=== PATIENT | female | born 1995 | race Two or more races ===

== ENCOUNTER 2017-09-13 09:05 | Observation (INO) | payer MEDICAID ==
[~2017-09-13 09:05] MED LIST: PREN27TA7 OR
== END 2017-09-13 10:50 | disposition home or self-care (01) | DRG 566 ==
LOC: LDRP 09:05
PROVIDERS: ADMIT Specialist; ATTEND Specialist
DX: O35.8XX0 Maternal care for other (suspected) fetal abnormality and damage, not applicable or unspecified (principal); Z3A.33 33 weeks gestation of pregnancy
CPT/HCPCS: 59025; 81002; G0378

== ENCOUNTER 2017-09-20 10:05 | Observation (INO) | payer MEDICAID ==
[~2017-09-20] VITALS: Ht 154.9 cm; Wt 92.5 kg
== END 2017-09-20 12:45 | disposition home or self-care (01) | DRG 468 ==
LOC: LDRP 10:05
PROVIDERS: ADMIT Specialist; ATTEND Specialist
DX: Q62.0 Congenital hydronephrosis (principal); Z3A.34 34 weeks gestation of pregnancy
CPT/HCPCS: 59025; 76818; 81002; G0378

== ENCOUNTER 2017-09-27 09:51 | Observation (INO) | payer MEDICAID ==
[2017-09-27] MEDS ORDERED: FERR27TA2 PO (11:29)
== END 2017-09-27 10:15 | disposition home or self-care (01) | DRG 566 ==
LOC: LDRP 09:51
PROVIDERS: ADMIT Obstetrics & Gynecology; ATTEND Obstetrics & Gynecology
DX: O35.8XX0 Maternal care for other (suspected) fetal abnormality and damage, not applicable or unspecified (principal); Q62.0 Congenital hydronephrosis; Z3A.35 35 weeks gestation of pregnancy
CPT/HCPCS: 59025; 76818; 81002; G0378

== ENCOUNTER 2017-10-04 10:00 | Observation (INO) | payer MEDICAID ==
[~2017-10-04 10:00] MED LIST changes: +FERR27TA2 PO
== END 2017-10-04 11:30 | disposition home or self-care (01) | DRG 566 ==
LOC: LDRP 10:00
PROVIDERS: ADMIT Obstetrics & Gynecology; ATTEND Obstetrics & Gynecology
DX: O99.89 Other specified diseases and conditions complicating pregnancy, childbirth and the puerperium (principal); N13.30 Unspecified hydronephrosis; Z3A.36 36 weeks gestation of pregnancy
CPT/HCPCS: 59025; 76818; 81002; G0378

== ENCOUNTER 2017-10-11 10:53 | Observation (INO) | payer MEDICAID | END 2017-10-11 12:13 | disposition home or self-care (01) | DRG 566 | LOC: LDRP 10:53 | PROVIDERS: ADMIT Obstetrics & Gynecology; ATTEND Obstetrics & Gynecology | DX: O35.8XX1 Maternal care for other (suspected) fetal abnormality and damage, fetus 1 (principal); Z3A.37 37 weeks gestation of pregnancy | CPT/HCPCS: 59025; 76818; 81002; G0378 ==

== ENCOUNTER 2017-10-18 10:22 | Observation (INO) | payer MEDICAID | END 2017-10-18 11:50 | disposition home or self-care (01) | DRG 566 | LOC: LDRP 10:22 | PROVIDERS: ADMIT Specialist; ATTEND Specialist | DX: O35.8XX0 Maternal care for other (suspected) fetal abnormality and damage, not applicable or unspecified (principal); Z3A.00 Weeks of gestation of pregnancy not specified | CPT/HCPCS: 59025; 76818; 81002; G0378 ==

== ENCOUNTER 2017-10-21 10:20 | Observation (INO) | payer MEDICAID ==
[2017-10-21 11:46] LABS: Basophils # (auto) 0 uL; Basophils % (auto) 0.2 % (0.0-2.0); Eosinophils # (auto) 0.1 uL; Eosinophils % (auto) 0.8 % (0.0-7.0); Hematocrit 33.3 % (36.0-46.0); Hemoglobin 10.9 g/dL (12.2-16.2); Lymphocytes # (auto) 1.3 uL; Lymphocytes % (auto) 16.3 % (10.0-50.0); Mean Corpuscular Hemoglobin 27.6 pg (28.0-32.0); Mean Corpuscular Hgb Conc. 32.9 g/dL (32.0-36.0); Mean Corpuscular Volume 83.9 fL (80.0-100.0); Monocytes # (auto) 0.5 uL; Monocytes % (auto) 6.4 % (0.0-12.0); Neutrophils % (auto) 76.3 % (37.0-80.0); Platelet Count (auto) 170 10^3/uL (140-450); Red Blood Cells 3.96 10^6/uL (4.0-5.20); Red Cell Distribution Width 16.4 % (11.8-14.3); White Blood Cell 7.9 10^3/uL (4.4-10.8)
[2017-10-22 06:06] LABS: RPR Non Reactive (Non Reactive)
== END 2017-10-21 12:20 | disposition home or self-care (01) | DRG 566 ==
LOC: LDRP 10:20
PROVIDERS: ADMIT Obstetrics & Gynecology; ATTEND Obstetrics & Gynecology
DX: O35.8XX0 Maternal care for other (suspected) fetal abnormality and damage, not applicable or unspecified (principal); Q62.0 Congenital hydronephrosis; Z3A.39 39 weeks gestation of pregnancy
CPT/HCPCS: 36415; 59025; 81002; 85025; 86592; G0378

== ENCOUNTER 2017-10-25 04:03 | Inpatient (IN) | payer MEDICAID ==
[2017-10-25] VITALS (15 sets, daily range): BP systolic 101–118; BP diastolic 53–83
[~2017-10-25] VITALS: Ht 154.9 cm; Wt 97.1 kg
[2017-10-25] MEDS: LACTATED RINGER'S 1,000 ML IV SCH ×3 (04:10→20:10)
[2017-10-25 04:55] LABS: Basophils # (auto) 0 uL; Basophils % (auto) 0.2 % (0.0-2.0); Eosinophils # (auto) 0.1 uL; Eosinophils % (auto) 1.4 % (0.0-7.0); Hematocrit 31.9 % (36.0-46.0); Hemoglobin 10.7 g/dL (12.2-16.2); Lymphocytes # (auto) 1.8 uL; Lymphocytes % (auto) 18.6 % (10.0-50.0); Mean Corpuscular Hemoglobin 28.6 pg (28.0-32.0); Mean Corpuscular Hgb Conc. 33.6 g/dL (32.0-36.0); Mean Corpuscular Volume 85.2 fL (80.0-100.0); Monocytes # (auto) 0.7 uL; Monocytes % (auto) 6.7 % (0.0-12.0); Neutrophils # (auto) 7.1 uL; Neutrophils % (auto) 73.1 % (37.0-80.0); Nucleated Red Blood Cells % 0.1 %; Platelet Count (auto) 159 10^3/uL (140-450); Red Blood Cells 3.75 10^6/uL (4.0-5.20); Red Cell Distribution Width 16.6 % (11.8-14.3); White Blood Cell 9.8 10^3/uL (4.4-10.8)
[2017-10-25 04:59] LABS: Urine Bacteria FEW /hpf (None Seen); Urine Blood Negative /uL (Negative); Urine Mucus FEW (None Seen); Urine Specific Gravity 1.028 (1.001-1.035); Urine WBC 1 /hpf (0 - 5)
[2017-10-25 05:09] LABS: INR 0.94 (0.9-1.15); Partial Thromboplastin Time 22.9 sec (23.78-33.04); Prothrombin Time 10.1 sec (9.27-12.13)
[2017-10-25 05:14] LABS: Albumin 2.9 g/dL (3.4-5.0); Bilirubin, Total 0.2 mg/dL (0.2-1.0); Calcium 9.5 mg/dL (8.5-10.1); Potassium 3.7 mmol/L (3.5-5.1); Total Protein 7.2 g/dL (6.4-8.2)
[2017-10-25] MEDS ORDERED: TETRACAINE 1% INJ 2 ML VIAL IJ ONE (08:38)
[2017-10-25] MEDS ORDERED: fentaNYL CITRATE 100 MCG/2 ML VL ONE (08:40)
[2017-10-25] MEDS ORDERED: MIDAZOLAM HCL 1MG/1ML-2 ML VIAL ONE (08:40)
[2017-10-25] MEDS ORDERED: KETOROLAC TROMETH 30 MG/ML 1ML VIAL IV ONE (08:45)
[2017-10-25] MEDS ORDERED: MIDAZOLAM HCL 1MG/1ML-2 ML VIAL IV PRN (08:45)
[2017-10-25] MEDS ORDERED: LABETALOL HCL 5 MG/ML 4ML SYRINGE IV PRN (08:45)
[2017-10-25] MEDS ORDERED: ePHEDrine SULFATE 50 MG/ML AMP IV PRN (08:45)
[2017-10-25] MEDS ORDERED: MORPHINE SULFATE 8mg/ml INJ SDV IV PRN ×2 (08:45→09:45)
[2017-10-25] MEDS ORDERED: HYDROmorphone HCL 2 MG/ML VL IV PRN (08:45)
[2017-10-25] MEDS ORDERED: ONDANSETRON HCL 4 MG/2 ML VIAL IV ONE (08:45)
[2017-10-25] MEDS ORDERED: ceFAZolin 1GM VL ONE (09:13)
[2017-10-25] MEDS ORDERED: OXYTOCIN 10 UNIT/ML 10ML VIAL ONE (09:29)
[2017-10-25] MEDS ORDERED: PHENYLEPHRINE HCL 10 MG/ML VL ONE (09:29)
[2017-10-25] MEDS: LACT. RINGERS/OXYTOCIN 20UNITS 1,000 ML IV SCH ×3 (09:36→22:56)
[2017-10-25] MEDS ORDERED: KETOROLAC TROMETH 30 MG/ML 1ML VIAL IV PRN ×2 (09:45→19:30)
[2017-10-25] MEDS ORDERED: ONDANSETRON HCL 4 MG/2 ML VIAL IV PRN (09:45)
[2017-10-25] MEDS ORDERED: MORPHINE SULFATE 8mg/ml INJ SDV IV ONE (10:00)
[2017-10-25] MEDS ORDERED: HYDROmorphone HCL 2 MG/ML VL ONE (16:51)
[2017-10-25] MEDS: ceFAZolin 1GM/100ML 50 ML IV SCH (17:00)
[2017-10-25] MEDS: HYDROmorphone HCL 2 MG/ML VL IV PRN ×2 (17:00→21:09)
[2017-10-25] MEDS ORDERED: KETOROLAC TROMETH 30 MG/ML 1ML VIAL ONE (19:35)
[2017-10-25] MEDS: KETOROLAC TROMETH 30 MG/ML 1ML VIAL IV PRN (19:49)
[2017-10-25] MEDS ORDERED: TETANUS-DIPTH-ACEL PERTUSSIS 0.5ML SYRG IM ONE (20:00)
[2017-10-25 20:03] LABS: Basophils # (auto) 0 uL; Basophils % (auto) 0.1 % (0.0-2.0); Eosinophils # (auto) 0 uL; Eosinophils % (auto) 0.4 % (0.0-7.0); Hemoglobin 9.8 g/dL (12.2-16.2); Lymphocytes # (auto) 1.6 uL; Lymphocytes % (auto) 15.4 % (10.0-50.0); Mean Corpuscular Hemoglobin 28.5 pg (28.0-32.0); Mean Corpuscular Hgb Conc. 33.6 g/dL (32.0-36.0); Mean Corpuscular Volume 84.8 fL (80.0-100.0); Monocytes # (auto) 0.5 uL; Monocytes % (auto) 5.3 % (0.0-12.0); Neutrophils # (auto) 8.2 uL; Neutrophils % (auto) 78.8 % (37.0-80.0); Nucleated Red Blood Cells % 0.1 %; Platelet Count (auto) 129 10^3/uL (140-450); Red Blood Cells 3.42 10^6/uL (4.0-5.20); Red Cell Distribution Width 16.5 % (11.8-14.3); White Blood Cell 10.4 10^3/uL (4.4-10.8)
[2017-10-26] MEDS: ceFAZolin 1GM/100ML 50 ML IV SCH ×2 (01:18→08:46)
[2017-10-26] MEDS: HYDROmorphone HCL 2 MG/ML VL IV PRN ×2 (01:19→05:41)
[2017-10-26 03:00] VITALS: BP 136/70
[2017-10-26] MEDS: KETOROLAC TROMETH 30 MG/ML 1ML VIAL IV PRN (03:47)
[2017-10-26] MEDS: LACTATED RINGER'S 1,000 ML IV SCH (04:10)
[2017-10-26] MEDS: LACT. RINGERS/OXYTOCIN 20UNITS 1,000 ML IV SCH (05:36)
[2017-10-26 06:54] LABS: Basophils # (auto) 0 uL; Basophils % (auto) 0.3 % (0.0-2.0); Eosinophils # (auto) 0 uL; Eosinophils % (auto) 0.4 % (0.0-7.0); Hematocrit 28.5 % (36.0-46.0); Hemoglobin 9.7 g/dL (12.2-16.2); Lymphocytes # (auto) 0.9 uL; Lymphocytes % (auto) 9.3 % (10.0-50.0); Mean Corpuscular Volume 85.3 fL (80.0-100.0); Monocytes # (auto) 0.5 uL; Monocytes % (auto) 5.1 % (0.0-12.0); Neutrophils # (auto) 8.2 uL; Neutrophils % (auto) 84.9 % (37.0-80.0); Platelet Count (auto) 119 10^3/uL (140-450); Red Blood Cells 3.34 10^6/uL (4.0-5.20); Red Cell Distribution Width 16.7 % (11.8-14.3); White Blood Cell 9.7 10^3/uL (4.4-10.8)
[2017-10-26 07:00] VITALS: BP 120/76
[2017-10-26] MEDS ORDERED: BISACODYL 10 MG RECT SUPP PR PRN (09:00)
[2017-10-26] MEDS: IBUPROFEN 800 MG TAB PO PRN ×2 (09:52→17:57)
[2017-10-26] MEDS: DOCUSATE SOD 100 MG CAP PO SCH ×2 (09:53→22:25)
[2017-10-26] MEDS: FERROUS SULFATE 325 MG TAB PO SCH ×2 (09:53→22:25)
[2017-10-26] MEDS: DOCUSATE CALCIUM 240 MG CAP PO SCH (09:53)
[2017-10-26] MEDS: HYDROcodone-ACET 5/325MG TAB PO PRN ×3 (10:10→22:25)
[2017-10-26 11:00] VITALS: BP 125/68
[2017-10-26] MEDS: SIMETHICONE 80 MG CHEWABLE TABLET PO SCH ×3 (11:50→22:25)
[2017-10-26 15:00] VITALS: BP 119/60
[2017-10-26 19:11] VITALS: BP 125/3
[2017-10-26 23:00] VITALS: BP 107/56
[2017-10-27 03:15] VITALS: BP 117/70
[2017-10-27] MEDS: IBUPROFEN 800 MG TAB PO PRN ×2 (04:15→16:05)
[2017-10-27] MEDS: SIMETHICONE 80 MG CHEWABLE TABLET PO SCH ×4 (06:45→21:45)
[2017-10-27] MEDS: HYDROcodone-ACET 5/325MG TAB PO PRN ×4 (06:52→23:30)
[2017-10-27 07:00] VITALS: BP 110/64
[2017-10-27] MEDS: DOCUSATE CALCIUM 240 MG CAP PO SCH (10:05)
[2017-10-27] MEDS: FERROUS SULFATE 325 MG TAB PO SCH ×2 (10:05→21:45)
[2017-10-27] MEDS: DOCUSATE SOD 100 MG CAP PO SCH ×2 (10:05→21:45)
[2017-10-27 11:02] LABS: RPR Non Reactive (Non Reactive)
[2017-10-27 11:15] VITALS: BP 111/70
[2017-10-27 15:18] VITALS: BP 104/56
[2017-10-27 19:00] VITALS: BP 110/64
[2017-10-27] MEDS ORDERED: BISACODYL 10 MG RECT SUPP PR ONE (21:35)
[2017-10-27 23:22] VITALS: BP 105/65
[2017-10-28 02:59] VITALS: BP 103/56
[2017-10-28] MEDS: HYDROcodone-ACET 5/325MG TAB PO PRN ×4 (05:26→21:57)
[2017-10-28] MEDS: SIMETHICONE 80 MG CHEWABLE TABLET PO SCH ×4 (05:26→21:52)
[2017-10-28 07:20] VITALS: BP 117/70
[2017-10-28] MEDS: DOCUSATE SOD 100 MG CAP PO SCH ×2 (10:00→21:52)
[2017-10-28] MEDS: FERROUS SULFATE 325 MG TAB PO SCH ×2 (10:00→21:52)
[2017-10-28] MEDS: DOCUSATE CALCIUM 240 MG CAP PO SCH (10:00)
[2017-10-28] MEDS: IBUPROFEN 800 MG TAB PO PRN ×2 (10:30→19:09)
[2017-10-28 11:09] VITALS: BP 124/64
[2017-10-28 15:00] VITALS: BP 104/61
[2017-10-28 18:47] VITALS: BP 124/79
[2017-10-28 23:30] VITALS: BP 118/64
[2017-10-29 03:25] VITALS: BP 131/63
[2017-10-29] MEDS: HYDROcodone-ACET 5/325MG TAB PO PRN (06:29)
[2017-10-29] MEDS: SIMETHICONE 80 MG CHEWABLE TABLET PO SCH (06:29)
[2017-10-29 06:43] VITALS: BP 120/84
== END 2017-10-29 10:15 | disposition home or self-care (01) | DRG 540 ==
LOC: LDRP 04:03
PROVIDERS: ADMIT Specialist; ATTEND Specialist
PROC: 10D00Z1 Extraction of Products of Conception, Low, Open Approach (ICD-10-PCS; principal; 2017-10-25 08:30)
DX: O34.211 Maternal care for low transverse scar from previous cesarean delivery (principal); Z68.41 Body mass index [BMI] 40.0-44.9, adult; O32.3XX0 Maternal care for face, brow and chin presentation, not applicable or unspecified; O99.214 Obesity complicating childbirth; E66.01 Morbid (severe) obesity due to excess calories; Z37.0 Single live birth; Z3A.39 39 weeks gestation of pregnancy; Z23 Encounter for immunization
CPT/HCPCS: 36415; 51702; 59025; 80053; 81001; 85025; 85610; 85730; 86592; 86850; 86900; 86901; 90715; 96374; 96375; J0690; J1885; J2250; J2590